=== PATIENT | female | born 1985 | race Hispanic/Latino ===

== ENCOUNTER 2017-04-25 19:00 | Emergency (ER) | payer SELFPAY ==
[2017-04-25 19:32] LABS: BASOPHILS % (AUTO) 0.5 % (0.0-5.0); HEMATOCRIT 38.6 % (36-48); LYMPHOCYTES % (AUTO) 30.3 % (21.0-51.0); MEAN CORPUSCULAR HEMOGLOBIN 27.8 pg (27.0-33.0); MEAN CORPUSCULAR HGB CONC 32.8 g/dL (32.0-36.0); MEAN CORPUSCULAR VOLUME 84.7 fL (79-99); MONOCYTES % (AUTO) 7.7 % (3.0-13.0); NEUTROPHILS % (AUTO) 58.5 % (40.0-77.0); PLATELET COUNT (AUTO) 286 K/uL (130-400); RED BLOOD CELL COUNT(AUTO) 4.55 MIL/uL (4.00-5.50); RED CELL DISTRIBUTION WIDTH 14.5 % (11.0-15.5)
[2017-04-25] MEDS ORDERED: ONDANSETRON HCL 4 MG/2 ML VIAL ONE (19:37)
[2017-04-25] MEDS ORDERED: SODIUM CHLORIDE 0.9% 1000ML 1,000 ML IV ONE (19:37)
[2017-04-25 19:39] LABS: APPEARANCE,URINE Clear (CLEAR); BILIRUBIN,URINE Negative (NEGATIVE); COLOR,URINE Yellow (YELLOW); GLUCOSE, URINE (UA) Negative (NEGATIVE); KETONES,URINE Negative (NEGATIVE); LEUKOCYTE ESTERASE ,URINE Negative (NEGATIVE); NITRATE,URINE Negative (NEGATIVE); OCCULT BLOOD,URINE Negative (NEGATIVE); PROTEIN,URINE Negative (NEGATIVE); UROBILINOGEN,URINE 0.2 mg/dL (0.2-1.0)
[2017-04-25 19:40] LABS: HCG,QUAL RESULT NEGATIVE (NEGATIVE)
[2017-04-25 19:47] LABS: AMPHET/METH SCREEN,URINE NEGATIVE (NEGATIVE); BARBITURATE SCREEN, URINE NEGATIVE (NEGATIVE); BENZODIAZEPINES SCREEN,URINE NEGATIVE (NEGATIVE); CANNABINOID SCREEN,URINE NEGATIVE (NEGATIVE); COCAINE SCREEN,URINE NEGATIVE (NEGATIVE); OPIATE SCREEN,URINE NEGATIVE (NEGATIVE); PHENCYCLIDINE SCREEN,URINE NEGATIVE (NEGATIVE)
[2017-04-25 19:57] LABS: CREATININE 0.8 mg/dL (0.5-1.5); POTASSIUM 3.6 mmol/L (3.5-5.1)
[2017-04-25] MEDS ORDERED: KETOROLAC TROMETHAMINE 30MG/ML ONE (20:16)
[2017-04-25] MEDS ORDERED: DEXAMETHASONE SOD PHOSPHATE 10MG/ML 1ML VIAL ONE (22:16)
[2017-04-25] MEDS ORDERED: DiphenhydrAMINE HCL 50 MG/ML VIAL ONE (22:16)
== END 2017-04-25 23:09 | disposition home or self-care (01) ==
LOC: EDH 19:00
DX: G43.101 Migraine with aura, not intractable, with status migrainosus (principal)
CPT/HCPCS: 36415; 70450; 80048; 80305; 81003; 81025; 85025; 96361; 96374; 96375; 99285; J1100; J1200; J1885; J2405; J7030

== ENCOUNTER 2021-08-03 12:19 | Emergency (ER) | payer OTHER, MEDICAID ==
[~2021-08-03] VITALS: Ht 165.1 cm; Wt 70.3 kg
[2021-08-03 12:20] VITALS: BP 126/71
[2021-08-03] MEDS ORDERED: CYCLOBENZAPRINE HCL 10 MG TABLET ONE (12:43)
[2021-08-03] MEDS ORDERED: KETOROLAC 30MG VIAL (30MG/ML) ONE (12:43)
[2021-08-03 12:57] LABS: BASOPHILS % (AUTO) 0.2 % (0.0-5.0); EOSINOPHILS % (AUTO) 0.1 % (0.0-8.0); HEMATOCRIT 35.1 % (36-48); LYMPHOCYTES % (AUTO) 15.7 % (21.0-51.0); MEAN CORPUSCULAR HGB CONC 30.8 g/dL (32.0-36.0); MEAN CORPUSCULAR VOLUME 71.5 fL (79-99); MONOCYTES % (AUTO) 4.8 % (3.0-13.0); PLATELET COUNT (AUTO) 351 K/uL (130-400); RED BLOOD CELL COUNT(AUTO) 4.91 MIL/uL (4.00-5.50); WHITE BLOOD COUNT (AUTO) 9.2 K/uL (4.8-10.8)
[2021-08-03] MEDS ORDERED: CYCLOBENZAPRINE HCL 10 MG TABLET PO ONE (13:00)
[2021-08-03] MEDS ORDERED: 0.9%NACL 1000ML 1,000 ML IV SCH (13:00)
[2021-08-03] MEDS ORDERED: KETOROLAC 30MG VIAL (30MG/ML) IVP ONE (13:00)
[2021-08-03] MEDS ORDERED: PROMETHAZINE HCL 25 MG/ML 1ML AMPULE IM ONE (13:00)
[2021-08-03 13:09] LABS: CREATININE 0.8 mg/dL (0.5-1.5); POTASSIUM 3.3 mmol/L (3.5-5.1)
[2021-08-03 13:13] LABS: ALBUMIN 3.9 g/dL (3.5-5.0); BILIRUBIN,TOTAL 0.4 mg/dL (0.2-1.0); TOTAL PROTEIN, SERUM 7.7 g/dL (6.0-8.3)
[2021-08-03] MEDS ORDERED: POTASSIUM BICARB/CIT AC 25 MEQ TABLET.EFF PO ONE (13:30)
[2021-08-03] MEDS ORDERED: TOPI50TA PO (13:55)
[2021-08-03] MEDS ORDERED: SUMA50TA PO (13:55)
[2021-08-03] MEDS ORDERED: ONDA4TAB10 PO (13:56)
== END 2021-08-03 14:26 | disposition home or self-care (01) ==
LOC: EDH 12:19
DX: G43.909 Migraine, unspecified, not intractable, without status migrainosus (principal); D64.9 Anemia, unspecified; E87.6 Hypokalemia; R11.2 Nausea with vomiting, unspecified; Z79.899 Other long term (current) drug therapy
CPT/HCPCS: 36415; 80053; 84703; 85025; 96361; 96372; 96374; 99284; J1885; J7030

== ENCOUNTER 2022-12-16 11:55 | Emergency (ER) | payer MEDICAID, OTHER ==
[~2022-12-16] VITALS: Ht 162.6 cm; Wt 75.7 kg
[~2022-12-16 11:55] MED LIST: ONDA4TAB10 PO; SUMA50TA PO; TOPI50TA PO
[2022-12-16] MEDS ORDERED: ACETAMINOPHEN 325 MG TAB PO ONE (13:00)
[2022-12-16 13:36] LABS: BASOPHILS # (AUTO) 0.02 K/uL (0.00-0.20); BASOPHILS % (AUTO) 0.2 % (0.0-5.0); EOSINOPHILS # (AUTO) 0.02 K/uL (0.00-0.70); EOSINOPHILS % (AUTO) 0.2 % (0.0-8.0); IMMATURE GRANULOCYTE ABSOLUTE 0.06 K/uL (0-1); LYMPHOCYTES # (AUTO) 1.6 K/uL (1.0-4.8); LYMPHOCYTES % (AUTO) 12.3 % (21.0-51.0); MEAN CORPUSCULAR HEMOGLOBIN 23.8 pg (27.0-33.0); MEAN CORPUSCULAR HGB CONC 31.1 g/dL (32.0-36.0); MEAN CORPUSCULAR VOLUME 76.6 fL (79-99); MONOCYTES # (AUTO) 0.9 K/uL (0.1-1.0); MONOCYTES % (AUTO) 6.6 % (3.0-13.0); NEUTROPHILS # (AUTO) 10.5 K/uL (1.8-7.7); NEUTROPHILS % (AUTO) 80.2 % (40.0-77.0); PLATELET COUNT (AUTO) 331 K/uL (130-400); RED BLOOD CELL COUNT(AUTO) 4.83 MIL/uL (4.00-5.50); RED CELL DISTRIBUTION WIDTH 16.9 % (11.0-15.5)
[2022-12-16 13:40] LABS: CREATININE 0.7 mg/dL (0.5-1.5); POTASSIUM 3.6 mmol/L (3.5-5.1)
[2022-12-16 13:58] LABS: ALBUMIN 3.6 g/dL (3.5-5.0); BILIRUBIN,TOTAL 0.3 mg/dL (0.2-1.0); TOTAL PROTEIN, SERUM 7.6 g/dL (6.0-8.3)
[2022-12-16 14:11] VITALS: BP 118/69; PULSE 92; RESP 17; O2SAT 99
[2022-12-16 14:15] LABS: APPEARANCE,URINE CLEAR (CLEAR); BILIRUBIN,URINE NEGATIVE (NEGATIVE); COLOR,URINE LIGHT-YELLOW (YELLOW); GLUCOSE, URINE (UA) NEGATIVE (NEGATIVE); KETONES,URINE NEGATIVE (NEGATIVE); LEUKOCYTE ESTERASE ,URINE NEGATIVE Leu/uL (NEGATIVE); NITRATE,URINE NEGATIVE (NEGATIVE); OCCULT BLOOD,URINE LARGE (NEGATIVE); PH,URINE 5.5 (5.0-8.0); PROTEIN,URINE NEGATIVE (NEGATIVE); UROBILINOGEN,URINE 0.2 mg/dL (0.2-1.0)
[2022-12-16 14:19] LABS: ADD UA MICROSCOPIC YES
[2022-12-16 14:21] LABS: MUCUS,URINE RARE LPF (None Seen); RBC,URINE TNTC /HPF (0-1)
== END 2022-12-16 14:37 | disposition home or self-care (01) ==
LOC: EDH 11:55
DX: O03.9 Complete or unspecified spontaneous abortion without complication (principal); E03.9 Hypothyroidism, unspecified; G43.909 Migraine, unspecified, not intractable, without status migrainosus
CPT/HCPCS: 36415; 76801; 80053; 81001; 84702; 85025; 86850; 86870; 86900; 86901; 88305

== ENCOUNTER 2023-02-17 17:23 | Emergency (ER) | payer OTHER ==
[~2023-02-17] VITALS: Ht 162.6 cm; Wt 77.1 kg
[2023-02-17 17:27] VITALS: BP 141/89; PULSE 91; RESP 16; O2SAT 100
[2023-02-17 18:34] LABS: MEAN CORPUSCULAR HEMOGLOBIN 25.6 pg (27.0-33.0); MEAN CORPUSCULAR HGB CONC 32.4 g/dL (32.0-36.0); MEAN CORPUSCULAR VOLUME 78.9 fL (79-99); RED BLOOD CELL COUNT(AUTO) 4.69 MIL/uL (4.00-5.50); RED CELL DISTRIBUTION WIDTH 17.3 % (11.0-15.5); WHITE BLOOD COUNT (AUTO) 12.2 K/uL (4.8-10.8)
[2023-02-17 18:34] LABS: BILIRUBIN,URINE SMALL mg/dL (NEGATIVE); GLUCOSE, URINE (UA) NEGATIVE (NEGATIVE); KETONES,URINE 5 mg/dL (NEGATIVE); LEUKOCYTE ESTERASE ,URINE TRACE Leu/uL (NEGATIVE); NITRATE,URINE POSITIVE (NEGATIVE); OCCULT BLOOD,URINE LARGE (NEGATIVE); PH,URINE 5.5 (5.0-8.0); PROTEIN,URINE >=300 mg/dL (NEGATIVE)
[2023-02-17 18:36] LABS: ADD UA MICROSCOPIC YES
[2023-02-17 18:38] LABS: BACTERIA,URINE RARE /HPF (None Seen); MUCUS,URINE FEW LPF (None Seen); RBC,URINE TNTC /HPF (0-1); UNCLASSIFIED CRYSTAL 50 /HPF (None Seen); WBC CLUMP RARE /HPF (0-1); YEAST,URINE BUDDING RARE /HPF (None Seen)
[2023-02-17 18:39] LABS: HCG,QUALITATIVE URINE NEGATIVE (NEGATIVE)
[2023-02-17 18:53] LABS: APPEARANCE,URINE CLOUDY (CLEAR)
[2023-02-17 18:54] LABS: COLOR,URINE RED (YELLOW)
[2023-02-17 18:54] LABS: ALBUMIN 3.6 g/dL (3.5-5.0); BILIRUBIN,TOTAL 0.2 mg/dL (0.2-1.0); CREATININE 0.7 mg/dL (0.5-1.5); POTASSIUM 3.3 mmol/L (3.5-5.1); TOTAL PROTEIN, SERUM 7.4 g/dL (6.0-8.3)
[2023-02-17] MEDS ORDERED: MEDROXYPROGESTERONE ACET 5 MG TAB PO SCH (22:30)
== END 2023-02-17 23:11 | disposition home or self-care (01) ==
LOC: EDH 17:23
DX: N93.9 Abnormal uterine and vaginal bleeding, unspecified (principal)
CPT/HCPCS: 36415; 76856; 80053; 81001; 81025; 85027; 86850; 86870; 86900; 86901; 87088

== ENCOUNTER 2024-02-25 06:45 | Day surgery (SDC) | payer OTHER ==
[2024-02-23 09:59] LABS: BASOPHILS # (AUTO) 0.02 K/uL (0.00-0.20); BASOPHILS % (AUTO) 0.3 % (0.0-5.0); EOSINOPHILS # (AUTO) 0.03 K/uL (0.00-0.70); EOSINOPHILS % (AUTO) 0.5 % (0.0-8.0); HEMATOCRIT 43.9 % (36-48); IMMATURE GRANULOCYTE ABSOLUTE 0.01 K/uL (0-1); LYMPHOCYTES # (AUTO) 1.3 K/uL (1.0-4.8); LYMPHOCYTES % (AUTO) 21.3 % (21.0-51.0); MEAN CORPUSCULAR HEMOGLOBIN 30.9 pg (27.0-33.0); MEAN CORPUSCULAR HGB CONC 34.2 g/dL (32.0-36.0); MEAN CORPUSCULAR VOLUME 90.5 fL (79-99); MONOCYTES # (AUTO) 0.3 K/uL (0.1-1.0); MONOCYTES % (AUTO) 5.4 % (3.0-13.0); NEUTROPHILS # (AUTO) 4.3 K/uL (1.8-7.7); NEUTROPHILS % (AUTO) 72.3 % (40.0-77.0); PLATELET COUNT (AUTO) 232 K/uL (130-400); RED BLOOD CELL COUNT(AUTO) 4.85 MIL/uL (4.00-5.50); RED CELL DISTRIBUTION WIDTH 12.3 % (11.0-15.5)
[2024-02-23 10:02] VITALS: BP 145/70; PULSE 61; RESP 16; TEMP 97.9
[2024-02-25] VITALS (16 sets, daily range): BP systolic 112–136; BP diastolic 59–81; PULSE 51–87; RESP 12–16; TEMP 96.2–97.5
[~2024-02-25] VITALS: Ht 162.6 cm; Wt 78.7 kg
[~2024-02-25 06:45] MED LIST changes: +MEDR10TA11 PO; -ONDA4TAB10 PO; +PRENATAL MVI PO; -SUMA50TA PO; -TOPI50TA PO
[2024-02-25] MEDS ORDERED: rocuRONium bROMide 10MG/1ML 5ML VL ONE (08:23)
[2024-02-25] MEDS ORDERED: proPOFol 10 MG/ML 20ML VIAL IV ONE (08:23)
[2024-02-25] MEDS ORDERED: SUCCINYLCHOLINE CHLORIDE 20 MG/ML 10 ML VIAL ONE (08:23)
[2024-02-25] MEDS ORDERED: MIDAZOLAM HCL 1 MG/ML 2ML VIAL ONE (08:23)
[2024-02-25] MEDS ORDERED: FENTanyl CITRate PF 50 MCG/1 ML 2ML VIAL ONE (08:24)
[2024-02-25] MEDS: LACTATED RINGERS 1000ML 1,000 ML IV ONE (08:47)
[2024-02-25] MEDS: ceFAZolin SODIUM 2 GM VIAL ONE (08:48)
[2024-02-25] MEDS: ceFAZolin SODIUM 2 GM VIAL IVPB ONE (08:48)
[2024-02-25] MEDS: TRANEXAMIC ACID 1000MG/10ML ONE (09:27)
[2024-02-25] MEDS ORDERED: NEOSTIGMINE METHYLSULFATE 1MG/ML IV ONE (09:36)
[2024-02-25] MEDS ORDERED: GLYCOPYRROLATE 0.2 MG/ML 5 ML VIAL ONE (09:36)
--- NOTE | 2024-02-25 09:54 | OP ---
DATE OF PROCEDURE: 02/25/2024 PREOPERATIVE DIAGNOSES: * Menorrhagia. * Undesired fertility. POSTOPERATIVE DIAGNOSES: * Menorrhagia. * Undesired fertility. PROCEDURES: * D and C with hysteroscopy. * Laparoscopic bilateral tubal fulguration. SURGEON: Anuel Weinberg MD ANESTHESIA: General. COUNTS: Complete. COMPLICATIONS: None. DRAINS: None. SPECIMENS: Endometrial curettings. ESTIMATED BLOOD LOSS: 100 mL. FINDINGS: * External genitalia, vagina and cervix were unremarkable. There was a grade 1-2 uterine prolapse. * Hysteroscopic evaluation of the uterine cavity revealed it to be regular in size, shape, and contour. No fibroids or polyps. * Laparoscopic examination of the pelvis revealed the uterus that showed slight diffuse enlargement. The fallopian tubes and ovaries were grossly normal bilaterally. No adhesions. No endometriosis. DESCRIPTION OF PROCEDURE: Under general anesthesia, the patient was scrubbed and draped in the usual dorsal lithotomy position. A weighted speculum was placed in the vagina and the cervix was secured with a tenaculum. No cervical dilation was necessary. The hysteroscope was introduced and evaluation of the cavity revealed the above described findings. The hysteroscope was then removed and a sharp curettage performed yielding a significant amount of tissue. The specimen was forwarded to pathology. The uterus was sounded to 9 cm. A HUMI was then adjusted and introduced for manipulation. After regloving, attention was then drawn to the abdomen where a small periumbilical incision was made and a Veress needle inserted and pneumoperitoneum was achieved without difficulty. A 5 mm trocar was introduced followed by the laparoscope, confirming correct intraperitoneal placement. A second puncture was made suprapubically in the midline and a 5 mm trocar introduced under direct laparoscopic visualization. Evaluation of the pelvic cavity revealed the above described findings. No evidence of uterine perforation. Using a Kleppinger connected to the bipolar generator, a bilateral tubal fulguration was accomplished without evidence of injury to any adjacent structures. The Kleppinger was removed, the pneumoperitoneum emptied and finally, the trocars removed as well. The skin incisions were closed with Dermabond surgical adhesive. The HUMI was removed from the vagina and more than normal amount of bleeding was noted. The bleeding was not heavy, but it seems to be constant. It did response to some uterine massage. I decided to further secure hemostasis and order administration of 1 gram of TXA. The patient tolerated the procedure well without evidence of any complications. She was transferred to recovery following extubation. TID: [id number] RECEIPT: [id number]
--- NOTE | 2024-02-25 11:00 | NUR ---
dressing: dermabound to umbilicus and lower supra pubic area dry/intact with no redness/swelling note to surrounding area. nikki pad with moderate amount sero-sanguinous drainage.
--- NOTE | 2024-02-25 11:30 | NUR ---
dressing: derma galicia to umbilicus and suprapubic area dry/intact with no redness/swelling noted to surrounding area. nikki pad with moderate amount of sero-sanguinous drainage and nikki pad changed.
== END 2024-02-25 11:15 | disposition home or self-care (01) ==
LOC: DAH 06:45
PROVIDERS: ATTEND Obstetrics & Gynecology
DX: Z30.2 Encounter for sterilization (principal); N92.0 Excessive and frequent menstruation with regular cycle; N81.4 Uterovaginal prolapse, unspecified; N84.0 Polyp of corpus uteri
CPT/HCPCS: 84703; 85025; 86850; 86900; 86901; 86870; 36415; 58670; 58558; 88305; A6260; A4351; A4215 ×2; J7120; J3010; J3490 ×3; J0330; J2250; J2704; J2710; J0690 ×2; A4223; A4222; A4221; A4663; A4600